=== PATIENT | female | born 1960 | race Caucasian/White ===

== ENCOUNTER 2017-04-13 09:51 | Emergency (ER) | payer BC ==
[2017-04-13 10:12] VITALS: BP 163/80
--- NOTE | 2017-04-13 10:47 | RAD ---
HISTORY: Left fifth toe pain, trauma COMPARISONS: None VIEWS: 3, Frontal, lateral, and oblique views of the fifth digit of the left foot FINDINGS: BONE DENSITY: Normal. BONES: There is no displaced fracture. JOINTS: There is no arthropathy. ALIGNMENT: There is no dislocation. SOFT TISSUES: Unremarkable. OTHER FINDINGS: None. IMPRESSION: NO ACUTE OSSEOUS INJURY. IF SYMPTOMS PERSIST, RECOMMEND REPEAT IMAGING.
--- NOTE | 2017-04-13 11:18 | UC ---
Lower Extremity/Ankle HPI - HPI Summary HPI Summary: ACCIDENTALLY KICKED 2 NIGHTS AGO WHILE SLEEPING. HAS HAD PERSISTENT LEFT 5TH TOE PAIN AND REDNESS SINCE THEN. - History of Current Complaint Chief Complaint: UCLowerExtremity Stated Complaint: TOE INJURY Time Seen by Provider: 04/13/17 10:56 Hx Obtained From: Patient, Family/Club Room Attendant - Onset/Duration: Sudden Onset, Lasting Hours, Still Present Severity Initially: Moderate Severity Currently: Moderate Pain Intensity: 8 Pain Scale Used: 0-10 Numeric Aggravating Factor(s): Standing, Ambulation Alleviating Factor(s): Rest Able to Bear Weight: Yes - Allergies/Home Medications Allergies/Adverse Reactions: Allergies Allergy/AdvReac Type Severity Reaction Status Date / Time Sulfa (Sulfonamide Allergy Rash Verified 04/13/17 10:12 Antibiotics) Home Medications: Home Medications Ibuprofen 200 mg PO Q6H PRN 04/13/17 [History Confirmed 04/13/17] PMH/Surg Hx/FS Hx/Imm Hx Cardiovascular History: Hypertension - Surgical History Surgical History: Yes Surgery Procedure, Year, and Place: colon resection. tubal ligation. pre- cancerous areas removed from skin - Family History Known Family History: Positive: None Family History: R & n/C - Social History Alcohol Use: Occasionally Substance Use Type: None Smoking Status (MU): Never Smoked Tobacco Have You Smoked in the Last Year: No - Immunization History Most Recent Tetanus Shot: 5-6 yrs ago Review of Systems Constitutional: Negative Skin: Other - LEF 5TH TOE ERYTHEMA Respiratory: Negative Cardiovascular: Negative Gastrointestinal: Negative Musculoskeletal: Arthralgia, Edema All Other Systems Reviewed And Are Negative: Yes Physical Exam Triage Information Reviewed: Yes Appearance: Well-Appearing, No Pain Distress, Well-Nourished Vital Signs: Initial Vital Signs Temp 98.8 F 04/13/17 10:08 Pulse 73 04/13/17 10:08 Resp 16 04/13/17 10:08 BP 163/80 04/13/17 10:08 Pulse Ox 100 04/13/17 10:08 Vital Signs Reviewed: Yes Eyes: Positive: Conjunctiva Clear ENT: Positive: Hearing grossly normal Neck: Positive: Supple Respiratory: Positive: No respiratory distress, No accessory muscle use Cardiovascular: Positive: Pulses Normal Abdomen Description: Positive: Soft Musculoskeletal: Positive: Edema @ - LEFT 5TH TOE, Other: - TTP LEFT 5TH TOE PROXIMAL PHALANX Neurological: Positive: Alert Psychological: Positive: Normal Response To Family, Age Appropriate Behavior Skin: Positive: Other - LEFT 5TH TOE REDNESS Lower Extremity Course/Dx - Differential Dx/Diagnosis Provider Diagnoses: LEFT 5TH TOE SPRAIN Discharge - Discharge Plan Condition: Stable Disposition: HOME Patient Education Materials: Foot Sprain (ED) Referrals: Tj Monsivais MD [Primary Care Provider] - If Needed Additional Instructions: XRAY TODAY UNREMARKABLE. REST, ICE, ELEVATE. YOUR SYMPTOMS SHOULD IMPROVE SIGNIFICANTLY OVER THE NEXT 1-2 WEEKS. IF YOU DO NOT IMPROVE EXPECTED FOLLOW- UP WITH YOUR PCP. YOU MAY BENEFIT FROM REPEAT IMAGING IF YOUR SYMPTOMS PERSIST.
== END 2017-04-13 11:23 | disposition home or self-care (01) ==
LOC: UCEAST 09:51
DX: S93.505A Unspecified sprain of left lesser toe(s), initial encounter (principal); I10 Essential (primary) hypertension; W51.XXXA Accidental striking against or bumped into by another person, initial encounter; Y92.9 Unspecified place or not applicable
CPT/HCPCS: 99211; G0463